=== PATIENT | male | born 2000 | race Caucasian/White ===

== ENCOUNTER 2022-04-15 13:18 | Emergency (ER) | payer OTHER, SELFPAY ==
[2022-04-15 13:32] VITALS: BP 146/71; PULSE 67; RESP 19; TEMP 36.6; O2SAT 99; BMI 20.7
--- NOTE | 2022-04-15 13:42 | HMH.EDUTC ---
[facility] [place] Clinical Impression: Cellulitis and abscess of buttock Clinical Impression: (Ruled Out): Tick bite Disposition: Home, Self-Care Condition on Discharge: Good Instructions: How to Remove a Tick, Cellulitis Additional Instructions: Keep the affected area clean and dry. Follow up with your regular doctor. Take the antibiotics as directed and apply the topical antibiotics as directed. Apply warm wet compresses to the affected area three or four times per day. GO TO THE ER FOR ANY WORSENING SYMPTOMS Prescriptions: Mupirocin [Bactroban 2% Ointment 22gm tube] 1 applicatio TP TID 7 Days #1 gm Transmission Status: Received by [facility] Doxycycline Monohydrate [Doxycycline Becker 100mg Tab] 100 mg PO Q12 10 Days #20 tab Transmission Status: Received by [facility] Referrals: Raymond Bryan MD [Primary Care Provider] - Time of Disposition: 14:24 Medical Decision Making - Medical Records Medical records reviewed: No: I reviewed the patient's medical records. - Ganesh Inquiry Pt receiving controlled substance: No Vital Signs: 04/15/22 13:32 04/15/22 14:36 Temperature 97.9 F 98.9 F Temperature Source Oral Pulse Rate 67 Pulse Rate [Left Radial] 67 Respiratory Rate 19 19 Blood Pressure 146/71 H Blood Pressure [Right Arm] 146/71 H Blood Pressure Mean [Right Arm] 96 02 Sat by Pulse Oximetry 99 [facility] [place] - General Stated complaint: tick bite on chest Time Seen by Provider: 04/15/22 14:08 Mode of Arrival: Ambulatory Source of Information: Patient Limitations: No Limitations Description of Symptoms (Recalled from Triage Doc. by RN): pt here for infected tick bite. right chest. bite occured 3-5 days ago HEENT Symptoms (Recalled from RN notes): No Resp Symptoms (Recalled from RN notes): No Skin Symptoms (Recalled from RN notes): Yes MS Symptoms (Recalled from RN notes): No Functional Status (Recalled from RN notes): wnl - History of Present Illness Provider Complaint: He states that he found a tick embedden on his right upper chest. There is redness that surrounds the wound. No open wound and no drainage. - Related Data Previous Rx's Medication Instructions Recorded fpbcapjokxeqvwa-zfolhxzvzujeiot-VD 10 ml PO Q4-6H PRN 7 Days #118 ml 11/24/19 2 mg-30 mg-10 mg/5 mL oral syrup Doxycycline Monohydrate 100 mg PO Q12 10 Days #20 tab 04/15/22 [Doxycycline Becker 100mg Tab] Mupirocin [Bactroban 2% Ointment 1 applicatio TP TID 7 Days #1 gm 04/15/22 22gm tube] Allergies Allergy/AdvReac Type Severity Reaction Status Date / Time No Known Allergies Allergy Verified 04/15/22 13:34 - Worker's Comp Is this a Worker's Comp case?: No [facility] History - Hepatitis A Screen Attestation statement:: This patient has been screened for Hepatitis A risk factors. I have reviewed the patient's past medical history: Yes Other Surgeries: Yes: No Previous Surgery - Social History Smoking Status: Never smoker Alcohol Intake: never Occupational Status: student Family Hx:: Non-contributory ROS Obtained: Yes All systems reviewed & no additional complaints - Constitutional Constitutional: Denies chills, Denies fever(s), Denies poor appetite, Reports malaise - Eyes Eyes: Denies eye discharge - ENT Ears, Nose, Mouth, and Throat: Denies dizziness, Denies otalgia, Denies sore throat - Cardiovascular Cardiovascular: Denies chest pain - Respiratory Respiratory: Denies chest congestion, Denies cough, Denies dyspnea, Denies stridor, Denies wheezing - Gastrointestinal Gastrointestingal: Denies: abdominal pain, diarrhea, nausea, vomiting - Musculoskeletal Musculoskeletal: Denies joint pain - Integumentary/Breasts Skin/Breast: Reports as per HPI Physical Exam - General General appearance: alert, in no apparent distress - Head Head exam: atraumatic, normocephalic, normal inspection - Eye Eye exam: Present: normal appe
[2022-04-15 14:36] VITALS: BP 146/71; PULSE 67; RESP 19; TEMP 37.2
== END 2022-04-15 14:36 | disposition home or self-care (01) ==
LOC: UTC 13:21
PROVIDERS: Emergency Provider Nurse Practitioner Family; PCP Internal Medicine Adolescent Medicine
DX: L02.31 Cutaneous abscess of buttock (principal); L03.317 Cellulitis of buttock; S21.102A Unspecified open wound of left front wall of thorax without penetration into thoracic cavity, initial encounter; W57.XXXA Bitten or stung by nonvenomous insect and other nonvenomous arthropods, initial encounter
CPT/HCPCS: 99213; G0463

== ENCOUNTER 2023-08-12 06:31 | Emergency (ER) | payer BC, SELFPAY ==
[2023-08-12 06:33] VITALS: BP 153/97; PULSE 92; RESP 14; TEMP 36.6; O2SAT 100; BMI 21.9
[2023-08-12 06:38] VITALS: BP 153/97; PULSE 103; RESP 13; O2SAT 100
--- NOTE | 2023-08-12 06:38 | PC.NURSE ---
in room talking with patient at this time.
--- NOTE | 2023-08-12 06:53 | ECG_ITS ---
APPROVED REPORT Exam: Resting ECG HR:71 bpm ECG Measurements Heart Rate 71 AXES NV 124 P 75 QRSd 89 QRS 91 QT 337 T 35 QTc 359 Conclusion SINUS RHYTHM BORDERLINE RIGHT AXIS DEVIATION [QRS AXIS > 90] BORDERLINE ECG UNCONFIRMED REPORT Electronically signed by : Raymond Bryan MD 08/12/2023 15:06:12
[2023-08-12 07:01] VITALS: BP 148/112; PULSE 89; O2SAT 100
--- NOTE | 2023-08-12 07:05 | HMH.EDGENADL ---
Discharge Plan Disposition Patient Disposition: Home, Self-Care Condition: Good Prescriptions Prescriptions: New hydroxyzine pamoate [Vistaril] 50 mg capsule 50 mg PO Q6H PRN (Reason: nausea and vomiting) Qty: 60 0RF No Action suuydxaekspsvvz-optkneutf-LD 2-30-10 mg/5 mL syrup 10 ml PO Q4-6H PRN (Reason: cough and congestion) 7 Days Qty: 118 0RF doxycycline monohydrate 100 MG tablet 100 mg PO Q12 10 Days Qty: 20 0RF mupirocin 22 GM ointment 1 applicatio TP TID 7 Days Qty: 1 0RF Referrals Follow up/Referrals: Raymond Byran MD [Primary Care Provider] - See instructions Activity Restrictions/Add. Instructions Additional Instructions/Restrictions: Recommend discontinuing the testosterone. Please take hydroxyzine as needed for anxiety. Please follow-up with your PCP for further evaluation. Clinical Impressions Clinical Impression: Intentional testosterone overdose, Acute anxiety Discharge ED Provider: Kleber Velez Adult HPI General Chief complaint: Anxiety Stated complaint: Anxiety Time Seen by Provider: 08/12/23 06:35 Mode of Arrival: Ambulatory Source of Information: Patient Limitations: No Limitations Description of Symptoms (Recalled from ER Triage Doc. by RN): pt states he been taking testosterone injection for 3 weeks for performance enchancing. On sunday pt began having panic attacks pt is concerned that his blood is too thick and heart rate and blood pressure is elevated. History of Present Illness HPI narrative: 23-year-old male previously healthy presents with worsening anxiety at home in the setting of exogenous testosterone ingestion. He reports that he has been taking it for the last several weeks for performance purposes . Mom, at bedside, reports that the patient is having poor sleep and is generally anxious about his health over the last several days. Patient reports that he is concerned that his blood is too thick and request that we remove some. He denies any suicidal homicidal ideation, denies any visual auditory hallucination. He denies any chest pain or shortness of breath. Reports that his blood pressure and heart rate have been elevated at home and this is causing him anxiety. He is not using any other medications besides exogenous testosterone Related Data Previous Rx's Medication Instructions Recorded vqisiiaghojbfhy-mtexraftoujevik-VF 10 ml PO Q4-6H PRN cough and 11/24/19 2 mg-30 mg-10 mg/5 mL oral syrup congestion 7 days #118 mL doxycycline monohydrate 100 mg 100 mg PO Q12 10 days #20 tabs 04/15/22 tablet mupirocin 2 % topical ointment 1 applicatio topical TID 7 days ##1 04/15/22 hydroxyzine pamoate 50 mg capsule 50 mg PO Q6H PRN nausea and 08/12/23 (Vistaril) vomiting #60 caps Allergies Allergy/AdvReac Type Severity Reaction Status Date / Time No Known Allergies Allergy Verified 04/15/22 13:34 [facility] Disclaimer: The information contained in this section may have been updated after the patient was seen, as this information can be updated by other users. Social History Smoking Status: Never smoker alcohol intake: never current occupational status: student Travel in the last 8 weeks: Inside the [place] ROS Obtained: Yes All systems reviewed & no additional complaints except as documented Physical Exam General General appearance: alert and anxious Head Head exam: atraumatic and normocephalic Eye Eye exam: Present normal appearance, PERRL and EOMI ENT ENT exam: Present normal oropharynx and normal external ear exam Neck Neck exam: Present normal inspection and full ROM Chest Chest inspection: Present normal inspection and symmetric chest wall rise; Absent tenderness Respiratory Respiratory exam: Present normal lung sounds bilaterally; Absent respiratory distress Cardiovascular Cardiovascular exam: Present normal rhythm and tachycardia Abdominal Exam Abdominal exam: Present soft; Absent distention,
[2023-08-12 07:33] VITALS: BP 128/67; PULSE 70; RESP 16; TEMP 36.8; O2SAT 98
== END 2023-08-12 07:34 | disposition home or self-care (01) ==
PROVIDERS: Emergency Provider Emergency Medicine; PCP Internal Medicine Adolescent Medicine
DX: T38.80 Poisoning by, adverse effect of and underdosing of unspecified hormones and synthetic substitutes (principal); F41.9 Anxiety disorder, unspecified
CPT/HCPCS: 93005; 99284

== ENCOUNTER 2023-12-11 08:31 | Outpatient (POV) | payer BC, SELFPAY | END 2023-12-11 23:59 | disposition home or self-care (01) | LOC: SC 08:31 | PROVIDERS: PCP Internal Medicine Adolescent Medicine; Visit Provider Dermatology | DX: Z00.00 Encounter for general adult medical examination without abnormal findings (principal) ==

== ENCOUNTER 2024-08-12 14:35 | Emergency (ER) | payer MEDICAID, SELFPAY ==
--- NOTE | 2024-08-12 14:59 | EXP.UTC ---
Discharge Plan Disposition Patient Disposition: Home, Self-Care Condition: Good Prescriptions Prescriptions: New azithromycin [Zithromax] 250 mg tablet 250 mg PO UD DOSE PK Qty: 6 0RF Rx Instructions: Take two (2) tablets today, then one (1) tablet days #2 thru #5 najoitqbpanzgxk-whtopqhqr-NM [Bromfed DM] 2-30-10 mg/5 mL Syrup 5 ml PO Q6H PRN (Reason: Cough) Qty: 240 0RF No Action kabqgtfkocrejgv-ohtlpccrn-CQ 2-30-10 mg/5 mL syrup 10 ml PO Q4-6H PRN (Reason: cough and congestion) 7 Days Qty: 118 0RF doxycycline monohydrate 100 MG tablet 100 mg PO Q12 10 Days Qty: 20 0RF mupirocin 22 GM ointment 1 applicatio TP TID 7 Days Qty: 1 0RF hydroxyzine pamoate [Vistaril] 50 mg capsule 50 mg PO Q6H PRN (Reason: nausea and vomiting) Qty: 60 0RF Referrals Follow up/Referrals: Raymond Bryan MD [Primary Care Provider] - See instructions Activity Restrictions/Add. Instructions Additional Instructions/Restrictions: Drink plenty of fluids. Take tylenol or ibuprofen for pain or fever. Take the medications as directed. Follow up with your regular doctor. GO TO THE ER FOR ANY WORSENING SYMPTOMS Clinical Impressions Clinical Impression: Sinusitis, Acute viral syndrome Instructions Patient Instructions: Sinusitis, DI for Sinusitis Print Language Print Language: Tajik Discharge ED Provider: Krishna Borges [facility] General Stated complaint: head congestion Time Seen by Provider: 08/12/24 14:58 History of Present Illness Provider Complaint: He states that he has had sinus congestion for the past 3 days. Related Data Previous Rx's ?Medication ?Instructions ?Recorded qxzchhjfzihdxly-mlomzlozytfuqln-YF 10 ml PO Q4-6H PRN cough and 11/24/19 2 mg-30 mg-10 mg/5 mL oral syrup congestion 7 days #118 mL doxycycline monohydrate 100 mg 100 mg PO Q12 10 days #20 tabs 04/15/22 tablet mupirocin 2 % topical ointment 1 applicatio topical TID 7 days #1 04/15/22 g hydroxyzine pamoate 50 mg capsule 50 mg PO Q6H PRN nausea and 08/12/23 (Vistaril) vomiting #60 caps azithromycin 250 mg tablet 250 mg PO UD DOSE PK #6 tabs 08/12/24 (Zithromax) zcixolmieuuwprk-dceactnbwdzlggy-VQ 5 ml PO Q6H PRN Cough #240 mL 08/12/24 2 mg-30 mg-10 mg/5 mL oral syrup (Bromfed DM) Allergies Allergy/AdvReac Type Severity Reaction Status Date / Time No Known Allergies Allergy Verified 02/29/24 15:35 [facility] Disclaimer: The information contained in this section may have been updated after the patient was seen, as this information can be updated by other users. Social History Smoking Status: Never smoker alcohol intake: never current occupational status: student Travel in the last 8 weeks: Inside the [place] ROS Obtained: Yes All systems reviewed & no additional complaints except as documented Constitutional Constitutional: Reports poor appetite Eyes Eyes: Reports system reviewed and no additional complaints, except as documented ENT Ears, Nose, Mouth, and Throat: Reports as per HPI Cardiovascular Cardiovascular: Reports system reviewed and no additional complaints, except as documented and Denies chest pain Respiratory Respiratory: Denies shortness of breath, Denies chest congestion, Reports cough, Denies stridor and Denies wheezing Gastrointestinal Gastrointestingal: Reports system reviewed and no additional complaints, except as documented; Denies abdominal pain, diarrhea or vomiting Musculoskeletal Musculoskeletal: Reports system reviewed and no additional complaints, except as documented and Denies arthralgias Integumentary/Breasts Skin/Breast: Reports system reviewed and no additional complaints, except as documented and Denies rash Neurologic Neurologic: Denies paresthesias Allergic/Immunologic Allergic/Immunologic: Denies wheezing Physical Exam General General appearance: alert and in no apparent distress Eye Eye exam: Present normal appearance, PERRL and EOMI ENT ENT exam: Present mucous membranes moist and normal external ear exam Expanded ENT Exam External ear exam: Present normal external inspection TM/Canal exam: Bilateral TM: erythema and bulging Nose exam: Absent sinus tenderness Nasal speculum exam: Bilateral: normal Mouth exam: Present normal external inspection; Absent drooling Teeth exam: Present normal inspection Throat exam: Present tonsillar erythema and tonsillomegaly Neck Neck exam: Present normal inspection, full ROM and trachea midline; Absent tenderness, lymphadenopathy or thyromegaly Chest Chest inspection: Present normal inspection and symmetric chest wall rise; Absent tenderness or rash Respiratory Respiratory exam: Present normal lung sounds bilaterally; Absent respiratory distress, wheezes, stridor or accessory muscle use Cardiovascular Cardiovascular exam: Present regular rate, normal rhythm and normal heart sounds Abdominal Exam Abdominal exam: Present soft; Absent distention, tenderness, guarding, rebound or rigidity Extremities Exam Extremities exam: Present normal inspection, full ROM and normal capillary refill; Absent tenderness or calf tenderness Back Exam Back exam: Present normal inspection and full ROM; Absent tenderness Neurological Exam Neurological exam: Present alert and oriented X3 Psychiatric Psychiatric exam: Present normal affect and normal mood Skin Skin exam: Present warm, dry, intact and normal color Lymphatic Lymphatic Findings: no adenopathy Medical Decision Making Medical Records Medical records reviewed: No I reviewed the patient's medical records. Screening: Per USPSTF and CDC recommendations, given the prevalence of disease in our region, it is our hospital?s policy to screen for HIV and viral Hepatitis for all patients aged 18 and over and those with ongoing risk factors. Ganesh Inquiry Pt receiving controlled substance: No Lab Data Lab results reviewed: Yes I reviewed the patient's lab results.
[2024-08-12 15:06] LABS: UTC Strep Screen (Rapid) Negative (Negative)
[2024-08-12 15:08] VITALS: BP 119/67; PULSE 94; RESP 16; TEMP 38; O2SAT 100; BMI 20.2
[2024-08-12 15:46] VITALS: BP 119/67; PULSE 94; RESP 16; TEMP 38; O2SAT 100
== END 2024-08-12 15:47 | disposition home or self-care (01) ==
PROVIDERS: Emergency Provider Nurse Practitioner Family; PCP Internal Medicine Adolescent Medicine
DX: J01.90 Acute sinusitis, unspecified (principal); B34.9 Viral infection, unspecified
CPT/HCPCS: 87880; 99212; 99214; G0463